=== PATIENT | male | born 1960 | race Caucasian/White ===

== ENCOUNTER 2022-12-09 08:41 | Inpatient (IN) | payer BC ==
[~2022-12-09] VITALS: Ht 170.2 cm; Wt 76.6 kg
[2022-12-09 10:04] LABS: CLARITY,URINE CLEAR (Clear); COLOR,URINE YELLOW (Yellow); GLUCOSE, URINE NEGATIVE (Neg); KETONES,URINE NEGATIVE (Neg); LEUKOCYTE ESTERASE ,URINE NEGATIVE (Neg); NITRITES, URINE NEGATIVE (Neg); OCCULT BLOOD,URINE NEGATIVE (Neg); PH,URINE 6.5 (4.8-8.0); PROTEIN,URINE NEGATIVE (Neg); UROBILINOGEN,URINE 0.2 E.U/dL (0.2-1.0)
[2022-12-09 10:07] LABS: UA COLLECTION TYPE CLN CATCH MIDSTREAM
[2022-12-09 10:30] LABS: ALANINE AMINOTRANSFERASE 32 U/L (12-78); ALBUMIN 3.7 G/DL (3.4-5.0); ALKALINE PHOSPHATASE 54 IU/L (46-116); ANION GAP 8 (8-16); ASPARTATE AMINO TRANSFERASE 19 U/L (10-37); BILIRUBIN,TOTAL 0.9 MG/DL (0.1-1.0); BLOOD UREA NITROGEN 15 MG/DL (7-18); BUN/CREATININE RATIO 15.5 (10.0-20.0); CALCIUM 10.2 MG/DL (8.5-10.1); CHLORIDE 102 MMOL/L (99-107); CREATININE 0.97 MG/DL (0.60-1.10); GLUCOSE 103 MG/DL (70-104); LIPASE 141 U/L (73-393); POTASSIUM 3.9 MMOL/L (3.5-5.1); SODIUM 137 MMOL/L (135-145); TOTAL CARBON DIOXIDE 26.6 MMOL/L (24-32); TOTAL PROTEIN 7.4 G/DL (6.4-8.2); eGFR 78 ML/MIN
[2022-12-09] MEDS ORDERED: normal saline 1000ML IV soln IVB ONE (10:50)
[2022-12-09] MEDS ORDERED: iohexol 300mg/ml 100ml inj. ONE (10:54)
--- NOTE | 2022-12-09 11:35 | NUR ---
RELIEVING RN FOR BREAK, PT IS RESTING QUIETLY ON GURNEY, C/O RUQ ABD PAIN, WAITING FOR CT RESULTS
[2022-12-09 11:39] LABS: BASOPHILS % (AUTO) 0.2 % (0-1); EOSINOPHILS % (AUTO) 0.1 % (0-6); HEMATOCRIT 48.3 % (42.0-52.0); HEMOGLOBIN 16.2 g/dl (14.0-17.9); LYMPHOCYTES # (AUTO) 1.7 X10'3 (1.1-4.8); LYMPHOCYTES % (AUTO) 10.5 % (21-51); MEAN CORPUSCULAR HEMOGLOBIN 30.9 PG (27.0-31.0); MEAN CORPUSCULAR HGB CONC 33.5 g/dL (33.0-36.5); MEAN CORPUSCULAR VOLUME 92.1 FL (78-98); MEAN PLATELET VOLUME 8.7 FL (7.4-10.4); MONOCYTES # (AUTO) 0.8 X10'3 (0-0.9); MONOCYTES % (AUTO) 4.8 % (2-12); NEUTROPHILS % (AUTO) 84.4 % (42-75); PLATELET COUNT 239 X10'3 (140-440); RED BLOOD COUNT 5.25 X10'6 (4.70-6.10); RED CELL DISTRIBUTION WIDTH 13.7 % (11.5-14.5); WHITE BLOOD COUNT 16.6 X10'3 (4.5-11.0)
[2022-12-09 11:50] VITALS: BP 100/59; PULSE 80; RESP 17; TEMP 97.7; O2SAT 92
[2022-12-09 12:48] LABS: APTT 27 SECONDS (22-32)
[2022-12-09] MEDS ORDERED: CefTRIAXone 2gm/D5W 50ml BAG 50 ML IV STA (13:07)
[2022-12-09] MEDS ORDERED: metroNIDAZOLE-Flagyl 750mg/NS 150 ML IV ONE (13:10)
[2022-12-09] MEDS ORDERED: potassium Cl 20 mEq SR tablet PO PRN ×2 (14:00)
[2022-12-09] MEDS ORDERED: magnesium 4gm in 100ml NS 100 ML IV PRN (14:00)
[2022-12-09] MEDS ORDERED: magnesium Cl slow-release 64mg tablet PO PRN (14:00)
[2022-12-09] MEDS ORDERED: potassium Cl 40MEQ/1/2NS 520ml 520 ML IV PRN (14:00)
[2022-12-09] MEDS ORDERED: acetaminophen 325mg tablet PO PRN (14:00)
[2022-12-09] MEDS ORDERED: magnesium 2GM in 50ml NS 50 ML IV PRN (14:00)
[2022-12-09] MEDS ORDERED: magnesium hydroxide 30ml (MOM) UD suspension PO PRN (14:00)
[2022-12-09] MEDS ORDERED: ondansetron/PF 4mg/2ml inj IV PRN ×3 (14:00→23:05)
[2022-12-09] MEDS ORDERED: mag hydrox/Alum hydrox/simeth 30ml oral suspension PO PRN (14:00)
[2022-12-09] MEDS: normal saline 1000ml 1,000 ML IV SCH ×2 (14:58→23:41)
[2022-12-09] MEDS ORDERED: ketorolac tromethamine 15mg/ml inj. IM PRN (16:10)
[2022-12-09] MEDS ORDERED: LOSA1TAB39 PO (16:29)
[2022-12-09] MEDS ORDERED: ASPI-611 PO (16:29)
--- NOTE | 2022-12-09 18:05 | NUR ---
OR called and Dr. Cameron verbalized RN to give ordered PRN Toradol for pain.
--- NOTE | 2022-12-09 18:39 | NUR ---
ASSUMED CARE FROM ALEKS BEGUM.
[2022-12-09] MEDS: K and/or MAG REPLACEMENT MC SCH (20:00)
--- NOTE | 2022-12-09 20:40 | NUR ---
DR SHAFFER AT BEDSIDE.
--- NOTE | 2022-12-09 21:17 | NUR ---
GAVE SBAR REPORT TO SURGERY RN, PT CHANGED INTO GOWN, CONSENT ON CHART.
--- NOTE | 2022-12-09 21:20 | NUR ---
OR TECH AT BEDSIDE
--- NOTE | 2022-12-09 21:21 | NUR ---
PT TO OR.
[2022-12-09] MEDS ORDERED: sevoflurane 250ml liquid IH ONE (21:50)
[2022-12-09] MEDS ORDERED: glycopyrrolate 0.2mg/ml inj ONE (21:50)
[2022-12-09] MEDS ORDERED: neostigmine methylsulfate 1 MG/ML 10ml vial ONE (21:50)
[2022-12-09] MEDS ORDERED: ondansetron/PF 4mg/2ml inj ONE (21:50)
[2022-12-09] MEDS ORDERED: midazolam 1 mg/ML 2ml injection ONE (21:52)
[2022-12-09] MEDS ORDERED: fentaNYL/PF 50MCG/1 ML 2ML syringe ONE (21:52)
[2022-12-09] MEDS ORDERED: meperidine/PF 50mg/ml syringe ONE (21:53)
[2022-12-09] MEDS ORDERED: LIDOcaine 2% (20mg/ml) 5ml vial ONE (22:04)
[2022-12-09] MEDS ORDERED: dexamethasone sod phosphate 4mg/ml inj. ONE (22:04)
[2022-12-09] MEDS ORDERED: rocuronium 10mg/ml inj IV ONE (22:04)
[2022-12-09] MEDS ORDERED: propofol inj 20 ML IV ONE (22:04)
[2022-12-09] MEDS ORDERED: BUPIVAcaine/PF 2.5 mg/ml (0.25%) 30ml vial IJ ONE (22:28)
[2022-12-09] MEDS ORDERED: ketorolac trometh. 30mg/ml inj. ONE (22:50)
[2022-12-09] MEDS ORDERED: BUPIVAcaine/PF 2.5mg/ml (0.25%) 10ml vial ONE (22:52)
[2022-12-09] MEDS ORDERED: proCHLORperazine 10 MG/2 ml inj IV PRN (22:55)
[2022-12-09] MEDS ORDERED: morphine 4 MG/ML inj SYRINge IV PRN (22:55)
[2022-12-09] MEDS ORDERED: ringers solution, lacted 1,000 ML IV SCH (22:55)
[2022-12-09] MEDS ORDERED: meperidine/PF 25mg/ml syringe IV PRN ×3 (22:55)
[2022-12-09] MEDS ORDERED: morphine 2 MG/ML inj. syringe IV PRN (22:55)
[2022-12-09] MEDS ORDERED: HYDROcodone/acetaminophen 10/325mg tab PO ONE (23:00)
[2022-12-09] MEDS ORDERED: naloxone 0.4 mg/ml inj IV PRN (23:05)
[2022-12-09 23:09] VITALS: BP 106/46; PULSE 94; RESP 16; O2SAT 98
--- NOTE | 2022-12-09 23:09 | NUR ---
Received from OR via SURGICAL BED , accompanied by Anesthesiologist LAYTON and report given by Anesthesiolgist. PATIENT DENIES PAIN UPON ARRIVAL. ONE JAYLENE DRAIN TO ABDOMEN THAT IS CDI AND MAINTAINING SUCTION AT THIS TIME. SEROSANGUENOUS WASH PRESENT IN BULB. WILL CONTINUE TO ASSESS THIS. PAIENT WITH 20G PIV IN RIGHT UE RUNNING LR AT 100. 10L MASK ON WITH 100% SATURATIONS. VSS STABLE AT THIS TIME. 2 GAUZE AND 2 BANDADIS PRESENT AT THIS TIME. SPOTTED WITH BLOOD BUT CONTAINED WITHIN DRESSING. Addendum: 12/09/22 at 2316 by Farooq Chandler RN, RN Amended: Links added.
[2022-12-09 23:19] VITALS: BP 91/52; PULSE 88; RESP 16; O2SAT 97
[2022-12-09 23:30] VITALS: BP 103/65; PULSE 86; RESP 14; O2SAT 97
[2022-12-09 23:40] VITALS: BP 110/76; PULSE 82; RESP 11; O2SAT 95
--- NOTE | 2022-12-09 23:45 | NUR ---
Arrived from the [facility] on a hospital bed and transferred with the RR nurse. He is awake, alert and orientated and not in any distress. His dressings have some shadow drainage noted and they are outlined to monitor. He has a JAYLENE coming from the right lower dressing and has small amt of serosang drainage. Tele monitor is being applied.
--- NOTE | 2022-12-09 23:49 | NUR ---
ALL TRANSFER CRITERIA HAS BEEN MET. VSS, PAIN AT A TOLERABLE LEVEL, ALL DISCHARGE INSTRUCTIONS COVERED WITH PATIENT AND ALL QUESTIONS ANSWERED. PATIENT TAKEN TO 4024B VIA BED AND PLUGGED INTO VS MACHINE. DRESSING STILL SAME AT 1149- RN AND LV PRESENT TO ASSESS AND ASSIST IN SET UP OF PATIENT PRIOR TO ME LEAVING. VSS AND PATIENT WITHOUT COMPLAINTS. BED LOW AND 2 RAILS UP. CALL LIGHT IN REACH. CARE TURNED OVER TO BRII YOUNG AND ALEKS LUNA. Addendum: 12/09/22 at 2887 by Farooq Beltran - ALEKS FINK Amended: Links added.
[2022-12-10] VITALS (13 sets, daily range): BP systolic 86–111; BP diastolic 52–66; PULSE 60–79; RESP 16–18; TEMP 97.4–98.2; O2SAT 94–97
[2022-12-10 05:17] LABS: ALBUMIN 2.7 G/DL (3.4-5.0); ANION GAP 9 (8-16); BLOOD UREA NITROGEN 20 MG/DL (7-18); BUN/CREATININE RATIO 17.2 (10.0-20.0); CALCIUM 8.6 MG/DL (8.5-10.1); CHLORIDE 104 MMOL/L (99-107); CREATININE 1.16 MG/DL (0.60-1.10); GLUCOSE 132 MG/DL (70-104); MAGNESIUM 1.7 MG/DL (1.5-2.4); POTASSIUM 4.3 MMOL/L (3.5-5.1); SODIUM 137 MMOL/L (135-145); TOTAL CARBON DIOXIDE 24.4 MMOL/L (24-32); eGFR 64 ML/MIN
--- NOTE | 2022-12-10 05:48 | NUR ---
assisted pt to bathroom to attempt to void. pt was unable to urinate. assisted back to bed, and bladder scanned, and only found to have 110ml volume in bladder. JAYLENE drain emptied of 50ml of serosanguinous fluid. Dressings remain intact, with no additional shadowing. Pt reports no pain at this time. Addendum: 12/10/22 at 0552 by Tani Ruiz LVN Amended: Links added.
--- NOTE | 2022-12-10 06:28 | NUR ---
Patient in room ORTHO 4024. I have received report from hal talley and had the opportunity to ask questions and assume patient care.
[2022-12-10] MEDS: normal saline 1000ml 1,000 ML IV SCH ×3 (07:36→23:39)
[2022-12-10] MEDS: pantoprazole 40MG/NS 100ML BAG 100 ML IV SCH (07:36)
[2022-12-10] MEDS: K and/or MAG REPLACEMENT MC SCH ×2 (08:00→19:53)
[2022-12-10 08:03] LABS: BASOPHILS % (AUTO) 0 % (0-1); EOSINOPHILS % (AUTO) 0 % (0-6); HEMATOCRIT 39.9 % (42.0-52.0); HEMOGLOBIN 13.2 g/dl (14.0-17.9); LYMPHOCYTES % (AUTO) 5.7 % (21-51); MEAN CORPUSCULAR HEMOGLOBIN 30.3 PG (27.0-31.0); MEAN CORPUSCULAR VOLUME 91.9 FL (78-98); MONOCYTES % (AUTO) 2.7 % (2-12); NEUTROPHILS % (AUTO) 91.6 % (42-75); RED BLOOD COUNT 4.35 X10'6 (4.70-6.10); RED CELL DISTRIBUTION WIDTH 13.6 % (11.5-14.5)
[2022-12-10 08:13] LABS: LYMPHOCYTES # (AUTO) 1.1 X10'3 (1.1-4.8); MEAN PLATELET VOLUME 9.1 FL (7.4-10.4); MONOCYTES # (AUTO) 0.5 X10'3 (0-0.9); NEUTROPHILS # (AUTO) 18.3 X10'3 (1.8-7.7)
[2022-12-10 08:14] LABS: PLATELET COUNT 155 X10'3 (140-440)
[2022-12-10 10:10] LABS: PLATELET ESTIMATE NORMAL; TOTAL CELLS COUNTED 100
[2022-12-10 10:11] LABS: BURR CELLS FEW
[2022-12-10] MEDS ORDERED: CefTRIAXone 2gm/D5W 50ml BAG 50 ML IV SCH (12:00)
[2022-12-10] MEDS: ketorolac tromethamine 15mg/ml inj. IV PRN (14:07)
[2022-12-10] MEDS: CefTRIAXone 2gm/D5W 50ml BAG 50 ML IV SCH (15:26)
[2022-12-10] MEDS: metroNIDAZOLE-Flagyl 250mg/NS 50 ML IV SCH ×2 (16:22→23:39)
--- NOTE | 2022-12-10 16:30 | NUR ---
PT HAVING DIFFICULTY VOIDING POST FC DC. BLADDER SCAN @ 1000 SHOWED 224 MLS IN BLADDER. PER DR BYERS REPLACE FC IF OVER 200 MLS IN. PT REFUSED YUEN CATH AND REQUESTED MORE TIME TO VOID. STATED THAT HE HAS HAD THIS PROBLEM THE LAST TIME A YUEN WAS PLACED AND TAKEN OUT. RE SCANNED BLADDER AFTER MULTIPLE SMALL VOIDS, SHOWED 315 MLS. PT STATES HE STILL DOES NOT WANT A YUEN CATH PLACED. WILL CONT TO ATTEMPT VOID. STATED THAT HE WOULD BE OPEN TO STRAIGHT CATH IF HE REALLY NEEDED IT. WILL CONT TO MONITOR CLOSELY.
[2022-12-10] MEDS ORDERED: LidoCAINE 2% Topical Jelly 11mL syringe TOP ONE (17:25)
--- NOTE | 2022-12-10 18:01 | NUR ---
Problems reprioritized. Patient report given, questions answered & plan of care reviewed with SUZETTE FINK.
--- NOTE | 2022-12-10 18:30 | NUR ---
Patient in room ORTHO 4024. I have received report from TIMOTHY and had the opportunity to ask questions and assume patient care.
[2022-12-10] MEDS ORDERED: acetaminophen 325mg tablet PO PRN (22:05)
[2022-12-11] MEDS: ketorolac tromethamine 15mg/ml inj. IV PRN (02:15)
[2022-12-11] MEDS: normal saline 1000ml 1,000 ML IV SCH ×3 (02:21→15:41)
--- NOTE | 2022-12-11 02:38 | NUR ---
PT STATES THAT HE IS PASSING FLATUS NOW
[2022-12-11 06:00] VITALS: BP 99/52; PULSE 59; RESP 18; TEMP 98.1; O2SAT 96
[2022-12-11 06:18] LABS: HEMATOCRIT 35.8 % (42.0-52.0); HEMOGLOBIN 11.8 g/dl (14.0-17.9); MEAN CORPUSCULAR HEMOGLOBIN 30.4 PG (27.0-31.0); MEAN CORPUSCULAR HGB CONC 32.9 g/dL (33.0-36.5); MEAN CORPUSCULAR VOLUME 92.3 FL (78-98); RED BLOOD COUNT 3.88 X10'6 (4.70-6.10); RED CELL DISTRIBUTION WIDTH 13.6 % (11.5-14.5)
[2022-12-11 06:28] LABS: ALBUMIN 2.4 G/DL (3.4-5.0); ANION GAP 10 (8-16); BLOOD UREA NITROGEN 22 MG/DL (7-18); CALCIUM 7.7 MG/DL (8.5-10.1); CHLORIDE 102 MMOL/L (99-107); GLUCOSE 118 MG/DL (70-104); POTASSIUM 3.8 MMOL/L (3.5-5.1); SODIUM 135 MMOL/L (135-145); TOTAL CARBON DIOXIDE 23.2 MMOL/L (24-32); eGFR 76 ML/MIN
[2022-12-11 06:39] LABS: PLATELET COUNT 174 X10'3 (140-440)
--- NOTE | 2022-12-11 06:55 | NUR ---
Patient in room ORTHO 4024. I have received report from ALEKS Bonilla and had the opportunity to ask questions and assume patient care.
[2022-12-11] MEDS: pantoprazole 40MG/NS 100ML BAG 100 ML IV SCH (07:16)
[2022-12-11 07:20] VITALS: RESP 16
[2022-12-11 07:37] LABS: BURR CELLS 2+; PLATELET ESTIMATE NORMAL; TOTAL CELLS COUNTED 100
[2022-12-11] MEDS: metroNIDAZOLE-Flagyl 250mg/NS 50 ML IV SCH (07:58)
[2022-12-11] MEDS: K and/or MAG REPLACEMENT MC SCH (08:00)
[2022-12-11] MEDS: CefTRIAXone 2gm/D5W 50ml BAG 50 ML IV SCH (08:39)
[2022-12-11 10:00] VITALS: BP 148/83; PULSE 68; RESP 18; TEMP 97; O2SAT 96
[2022-12-11] MEDS ORDERED: LEVO-65 PO (14:59)
[2022-12-11] MEDS ORDERED: METR-159 PO (14:59)
--- NOTE | 2022-12-11 17:03 | NUR ---
Pt stable for discharge. IV discontinued prior to d/c. Patient signed all discharge paperwork. Patient left with all personal belongings. Patients was present at time of discharge. Patient was assisted out of facility in a wheelchair with the assistance of one staff member. Patient got into a private vehicle with and left to go home.
--- NOTE | 2022-12-11 18:42 | NUR ---
TRACTOR SWEEPER DRIVER documentation: I have reviewed and agree with assessments performed and documented by Hans FINK.
== END 2022-12-11 15:30 | disposition home or self-care (01) | DRG 342 ==
LOC: ER 08:42 → ED HOLD 14:02 → UNDOADMIN 14:02 → EDBEDREQ 15:41 → ED HOLD 15:46 → ORTHO 4S 23:48 → UNDODISIN 12-11 15:30
PROVIDERS: ADMIT Internal Medicine; ATTEND Internal Medicine
PROC: BW211ZZ Computerized Tomography (CT Scan) of Abdomen and Pelvis using Low Osmolar Contrast (ICD-10-PCS; 2022-12-09)
PROC: 0DTJ4ZZ Resection of Appendix, Percutaneous Endoscopic Approach (ICD-10-PCS; principal; 2022-12-09 21:50)
DX: K35.30 Acute appendicitis with localized peritonitis, without perforation or gangrene (principal); N17.9 Acute kidney failure, unspecified; E86.0 Dehydration; D72.829 Elevated white blood cell count, unspecified; I10 Essential (primary) hypertension; Z90.81 Acquired absence of spleen; Z88.0 Allergy status to penicillin; R33.9 Retention of urine, unspecified
CPT/HCPCS: 36415; 71045; 74177; 80048; 80053; 81003; 83690; 83735; 85007; 85025; 85610; 85730; 86885; 86900; 86901; 87081; 93005; 99285; A4215; A4314; A4615; A4618; A6209; A6212; A6253; A6402; A6446; A6449; A7000; C9113; G0378; J0696; J1100; J1885; J2175; J2250; J2405; J2704; J2710; J3010; J3490; J7030; J7120; Q9967

== ENCOUNTER 2024-08-13 01:56 | Emergency (ER) | payer BC ==
[~2024-08-13] VITALS: Ht 167.6 cm; Wt 81.2 kg
[~2024-08-13 01:56] MED LIST: ASPI-611 PO; LOSA1TAB39 PO
[2024-08-13 02:13] LABS: BASOPHILS # (AUTO) 0.1 X10'3 (0-0.2); BASOPHILS % (AUTO) 1.1 % (0-1); EOSINOPHILS # (AUTO) 0.1 X10'3 (0-0.9); EOSINOPHILS % (AUTO) 1.6 % (0-6); HEMATOCRIT 43.8 % (42.0-52.0); HEMOGLOBIN 14.7 g/dl (14.0-17.9); LYMPHOCYTES # (AUTO) 2.6 X10'3 (1.1-4.8); LYMPHOCYTES % (AUTO) 42.3 % (21-51); MEAN CORPUSCULAR HEMOGLOBIN 30.6 PG (27.0-31.0); MEAN CORPUSCULAR HGB CONC 33.6 g/dL (33.0-36.5); MEAN PLATELET VOLUME 8.3 FL (7.4-10.4); MONOCYTES # (AUTO) 0.6 X10'3 (0-0.9); NEUTROPHILS # (AUTO) 2.8 X10'3 (1.8-7.7); PLATELET COUNT 298 X10'3 (140-440); RED BLOOD COUNT 4.82 X10'6 (4.70-6.10); RED CELL DISTRIBUTION WIDTH 13.9 % (11.5-14.5); WHITE BLOOD COUNT 6.2 X10'3 (4.5-11.0)
[2024-08-13 02:28] VITALS: BP 120/72; PULSE 77; O2SAT 96
[2024-08-13 02:29] VITALS: RESP 15
[2024-08-13 02:29] LABS: ALANINE AMINOTRANSFERASE 38 U/L (12-78); ALBUMIN/GLOBULIN RATIO 0.9 (1.1-1.5); ALKALINE PHOSPHATASE 47 IU/L (46-116); ANION GAP 5 (8-16); ASPARTATE AMINO TRANSFERASE 18 U/L (10-37); BILIRUBIN,TOTAL 0.2 MG/DL (0.1-1.0); BLOOD UREA NITROGEN 13 MG/DL (7-18); BUN/CREATININE RATIO 14.1 (10.0-20.0); CALCIUM 8.2 MG/DL (8.5-10.1); CHLORIDE 104 MMOL/L (99-107); CREATININE 0.92 MG/DL (0.60-1.10); GLUCOSE 111 MG/DL (70-104); LIPASE 74 U/L (16-77); POTASSIUM 3.5 MMOL/L (3.5-5.1); SODIUM 137 MMOL/L (135-145); TOTAL CARBON DIOXIDE 28.1 MMOL/L (24-32); TOTAL PROTEIN 6.3 G/DL (6.4-8.2); eCRCL 74 ML/MIN; eGFR 83 ML/MIN
[2024-08-13] MEDS: normal saline 1000ml 1,000 ML IV ONE (02:56)
[2024-08-13 03:47] LABS: BILIRUBIN,URINE NEGATIVE (Neg); CLARITY,URINE CLEAR (Clear); COLOR,URINE YELLOW (Yellow); GLUCOSE, URINE NEGATIVE (Neg); KETONES,URINE NEGATIVE (Neg); LEUKOCYTE ESTERASE ,URINE NEGATIVE (Neg); NITRITES, URINE NEGATIVE (Neg); OCCULT BLOOD,URINE TRACE-INTACT (Neg); PROTEIN,URINE NEGATIVE (Neg)
[2024-08-13 03:54] LABS: UA COLLECTION TYPE NON-SPECIFIED
[2024-08-13 03:55] LABS: BACTERIA,URINE NONE SEEN /HPF (Neg); RBC,URINE 0-2 /HPF (0-2); SQUAMOUS EPITHELIAL CELL,UR FEW /LPF (FEW); WBC,URINE NONE SEEN /HPF (0-4)
[2024-08-13] MEDS ORDERED: TINI500T18 PO (04:36)
[2024-08-13 04:39] VITALS: TEMP 98.5
== END 2024-08-13 04:43 | disposition home or self-care (01) ==
LOC: ER 01:57
DX: R19.7 Diarrhea, unspecified (principal); I10 Essential (primary) hypertension; Z88.0 Allergy status to penicillin; Z79.82 Long term (current) use of aspirin
CPT/HCPCS: 36415; 80053; 81001; 83690; 85025; 96360; 99283; J7030